=== PATIENT | female | born 1985 | race American Indian/Alaskan Native ===

== ENCOUNTER 2017-09-29 14:39 | Emergency (ER) | payer MEDICAID, OTHER ==
--- NOTE | 2017-09-29 15:38 | OBHP ---
Datetime: 09/29/2017 15:35 IP Adm Impression: , intrauterine ; No Active Labor IP Admit Plan: Observation/Evaluation; Discharge home Admit Comment, IP Provider: Patient is a intrauterine at 32 weeks gestation patient noted to have a cervical length of 1.6 cm. Patient currently taking progesterone decline cerclage. Champ escobar referred to OB ED for administration of steroids. Patient denies any uterine contractions leaka ge of fluid she reports good movement. Past medical history asthma Past surgical history none No known drug allergies Social history denies alcohol tobacco use Obstetrical history 4 previous normal spontaneous vaginal deliveries Review of systems patient denies headache chest pain shortness of breath palpitations nausea vomit ing diarrhea heat or cold allergies bruisability musculoskeletal neurological complaints Vital signs stable afebrile Physical exam see notes Intrauterine at 32 weeks Short cervix External monitor, observation Steroids Patient discharged home with labor precautions Patient to follow up with PMDD next week Pelvic Type - PN: Adequate Extremities - PN: Normal Abdomen - PN: Normal Back - PN: Not Done Breast - PN: Not Done Lungs - PN: Normal Heart - PN: Normal Thyroid - PN: Normal Neurologic - PN: Normal HEENT - PN: Normal General - PN: Normal FHR - Baseline A Provider: 145 EGA AdmitDate IP: 32.0 Vital Signs Provider: Reviewed IP Chief Complaint: Other Genitourinary Exam: Not Done DTRs - PN: Normal
[2017-09-29] MEDS ORDERED: Betamethasone Soluspan 30 mg/5mL Inj Susp IM ONE (15:42)
[2017-09-30 11:46] VITALS: BP 111/66; PULSE 84; RESP 16; TEMP 98.3; O2SAT 98
== END 2017-09-29 16:45 | disposition home or self-care (01) ==
LOC: H.EROB2 14:39
DX: O26.873 Cervical shortening, third trimester (principal); Z23 Encounter for immunization; Z3A.32 32 weeks gestation of pregnancy; J45.909 Unspecified asthma, uncomplicated
CPT/HCPCS: 96372; 99283; J0702